=== PATIENT | female | born 1960 | race Caucasian/White ===

== ENCOUNTER 2017-04-11 19:05 | Emergency (ER) | payer BC, MEDICAID ==
[2017-04-11 19:10] VITALS: RESP 16; TEMP 97.9
--- NOTE | 2017-04-11 20:03 | EDPHY ---
HPI/HX/ROS/PE/MDM Narrative: CHIEF COMPLAINT: Left leg erythema HPI: This patient is a 56 year old female who presents to the Emergency Department with an area of erythema to her posterior left leg increasing in severity over the past week. She states that she was bitten by a spider five weeks prior to arrival and developed contact dermatitis behind her left leg. She was given a shot of prednisone at that time, which alleviated her dermatitis for three weeks. One week ago, however, she developed increasing redness to the site of the original dermatitis that she describes as pruritic and painful. The erythema has since spread to her right leg and her left eye. She was started on a course of Bactrim this morning and given instructions to use an antihistamine three times daily. She took her first dose of the antihistamine this afternoon without improvement. She presents to the ED as the area of erythema is increasing beyond original marked borders. She denies fever or chills and has no additional complaints. No pertinent medical history. REVIEW OF SYSTEMS: Aside from elements discussed in the HPI, a comprehensive 10-point review of systems was reviewed and is negative. PMH: Denies. SOCIAL HISTORY: at bedside. PHYSICAL EXAM: General:Patient is alert, in no acute distress. ENT:Eyes are normal to inspection. ENT inspection normal. Neck: Normal inspection. Full range of motion. Respiratory:No respiratory distress. Breath sounds normal bilaterally. Cardiovascular: Regular rate and rhythm. Strong peripheral pulses. Normal cap refill. Abdomen:The abdomen is nontender to palpation. There are no peritoneal signs. There are normal bowel sounds. Back: Normal to inspection. No tenderness to palpation. Skin: Large area of erythema with irregular border over the inner left thigh, outside of previous marked border. Erythema is also present on the inner right thigh, outside of previous marked border. Extremities: Normal appearance. Full range of motion. Neuro: Oriented x3. Normal motor function. Normal sensory function. ED Course: This 56-year-old female presents with an increasing area of erythema with irregular borders to the posterior aspect of her left leg, also present on the right thigh. She has history of contact dermatitis to the same area five weeks prior to arrival that was treated effectively with prednisone for four weeks before recurrence. She is alert and well-appearing; denies fever or other complaints suggestive of systemic infection. Will proceed with BMP and CBC. Labs obtained and are largely unremarkable. WBC is within normal limits at 7.06. I discussed these results with the patient and my suspicion of dermatitis versus cellulitis. IV established. 25mg IV Benadryl and 125mg IV methylprednisolone administered to treat dermatitis. On reevaluation, the patient reports improvement to her symptoms. She understands instructions to take Benadryl and follow-up with her PCP for further evaluation. She will be discharged home in good condition. MDM: This patient presents with recurrence of bilateral leg erythema. Given bilateral nature, severe itching, lack of systemic symptoms or fever, and normal WBC, I highly doubt this represents cellulitis. This seems most consistent with dermatitis of unknown etiology. I have prescribed steroids and will switch coverage to keflex as a precaution. I think the patient would benefit from evaluation by a platen press feeder as an outpatient. - Data Points Laboratory Results: Laboratory Results 04/11/17 20:10 04/11/17 20:10 04/11/17 04/11/17 20:10 20:10 WBC 7.06 10^3/uL 10^3/uL (3.80-9.50) RBC 4.50 10^6/uL 10^6/uL (4.18-5.33) Hgb 13.6 g/dL g/dL (12.6-16.3) Hct 40.6 % % (38.0-47.0) MCV 90.2 fL fL (81.5-99.8) MCH 30.2 pg pg (27.9-34.1) MCHC 33.5 g/dL g/dL (32.4-36.7) RDW 13.2 % % (11.5-15.2) Plt Count 278 10^3/uL 10^3/uL (150-400) MPV 8.5 fL L fL (8.7-11.7) Neut % (Auto) 42.0 % % (39.3-74.2) Lymph % (Auto) 37.5 % % (15.0-45.0) Wheeler % (Auto) 9.9 % % (4.5-13.0) Eos % (Auto) 10.1 % H % (0.6-7.6) Baso % (Auto) 0.4 % % (0.3-1.7) Nucleat RBC Rel Count 0.0 % % (0.0-0.2) Absolute Neuts (auto) 2.96 10^3/uL 10^3/uL (1.70-6.50) Absolute Lymphs (auto) 2.65 10^3/uL 10^3/uL (1.00-3.00) Absolute Monos (auto) 0.70 10^3/uL 10^3/uL (0.30-0.80) Absolute Eos (auto) 0.71 10^3/uL H 10^3/uL (0.03-0.40) Absolute Basos (auto) 0.03 10^3/uL 10^3/uL (0.02-0.10) Absolute Nucleated RBC 0.00 10^3/uL 10^3/uL (0-0.01) Immature Gran % 0.1 % % (0.0-1.1) Immature Gran # 0.01 10^3/uL 10^3/uL (0.00-0.10) Sodium 137 mEq/L mEq/L (134-144) Potassium 3.7 mEq/L mEq/L (3.5-5.2) Chloride 103 mEq/L mEq/L (97-110) Carbon Dioxide 25 mEq/l mEq/l (22-31) Anion Gap 9 mEq/L mEq/L (8-16) BUN 16 mg/dL mg/dL (7-23) Creatinine 0.7 mg/dL mg/dL (0.6-1.0) Estimated GFR > 60 Glucose 95 mg/dL mg/dL (70-100) Calcium 9.7 mg/dL mg/dL (8.5-10.4) Medications Given: Discontinued Medications Diphenhydramine HCl (Benadryl Injection) 25 mg IVP EDNOW ONE Stop: 04/11/17 20:23 Last Admin: 04/11/17 20:36 Dose: 25 mg Methylprednisolone Sodium Succinate (Solu-Medrol) 125 mg IVP EDNOW ONE Stop: 04/11/17 20:23 Last Admin: 04/11/17 20:36 Dose: 125 mg General Time Seen by Provider: 04/11/17 19:52 Initial Vital Signs: Initial Vital Signs Temperature (C) 36.6 C 04/11/17 19:07 Heart Rate 109 H 04/11/17 19:07 Respiratory Rate 16 04/11/17 19:07 Blood Pressure 109/75 04/11/17 19:07 O2 Sat (%) 97 04/11/17 19:07 O2 Delivery Mode Room Air Allergies/Adverse Reactions: No Known Allergies Allergy (Unverified 04/11/17 19:07) Home Medications: Medication Instructions Recorded Cephalexin [Keflex] 500 mg PO TID #21 cap 04/11/17 predniSONE 60 mg PO DAILY 5 Days 04/11/17 Departure - Departure Disposition: Home, Routine, Self-Care Clinical Impression: Dermatitis Condition: Good Instructions: Dermatitis (ED) Additional Instructions: 1. Take Benadryl [id number] three times daily until the area of redness on your legs disappears completely. 2. Follow-up with your primary care provider if your symptoms persist in the next 3-5 days. 3. Return to the Emergency Department if you experience increased areas of redness, worsening pain, fever or chills, or for other serious concerns. Referrals: [facility] [Clinic] - As per Instructions Prescriptions: Cephalexin [Keflex] 500 mg PO TID #21 cap predniSONE 60 mg PO DAILY 5 Days Report Scribed for: Bob Powers Report Scribed by: Virginia Bahena Date of Report: 04/11/17 Time of Report: 20:04 Physician Review and Approval Statement: Portions of this note were transcribed by an ED scribe. I personally performed the history, physical exam, and medical decision making; and confirm the accuracy of the information in the transcribed note.
[2017-04-11 20:21] LABS: % IMMATURE GRANULYOCYTES 0.1 % (0.0-1.1); ABSOLUTE IMMATURE GRANULOCYTES 0.01 10^3/uL (0.00-0.10); ADD DIFF? NO; ADD MORPH? NO; ADD SCAN? NO; ATYPICAL LYMPHOCYTE FLAG 10 (0-99); FRAGMENT RBC FLAG 0 (0-99); HEMATOCRIT 40.6 % (38.0-47.0); HEMOGLOBIN 13.6 g/dL (12.6-16.3); LEFT SHIFT FLG 0 (0-99); LIPEMIA HEMOLYSIS FLAG 80 (0-99); MEAN CELL HEMOGLOBIN 30.2 pg (27.9-34.1); MEAN CELL HEMOGLOBIN CONCENTR. 33.5 g/dL (32.4-36.7); MEAN CELL VOLUME 90.2 fL (81.5-99.8); MEAN PLATELET VOLUME 8.5 fL (8.7-11.7); PLATELET CLUMPS FLAG 20 (0-99); PLATELET COUNT 278 10^3/uL (150-400); RED CELL DISTRIBUTION WIDTH 13.2 % (11.5-15.2)
[2017-04-11] MEDS ORDERED: methylPREDNISolone SOD SUCC 125 MG/2 ML VIAL IVP ONE (20:22)
[2017-04-11 20:33] LABS: ANION GAP 9 mEq/L (8-16); CALCIUM 9.7 mg/dL (8.5-10.4); CARBON DIOXIDE 25 mEq/l (22-31); CHLORIDE 103 mEq/L (97-110); CREATININE 0.7 mg/dL (0.6-1.0); GLOMERULAR FILTRATION RATE > 60; GLUCOSE 95 mg/dL (70-100); POTASSIUM 3.7 mEq/L (3.5-5.2); SODIUM 137 mEq/L (134-144)
[2017-04-11 21:39] VITALS: BP 99/65; PULSE 82; O2SAT 95
== END 2017-04-11 21:39 | disposition home or self-care (01) ==
DX: L30.9 Dermatitis, unspecified (principal)
CPT/HCPCS: 96374; J1200